=== PATIENT | female | born 1980 | race Caucasian/White ===

== ENCOUNTER → 2024-01-05 | Outpatient (CLI) | payer BC ==
[~2024-01-05] MED LIST: BACTRIM DS 8001 TAB PO; CELEXA 20MG20 MG/TAB PO; DIFLUCAN150 MG PO; DULERA1 ARO IH; KLONOPIN 0.5MG0.5 MG PO; LEVAQUIN 750MG750 M1 PO; NO HOME MEDICATIONS; NORCO 325 MG-51 TAB PO; PREDNISONE20 MG PO; PRENATAL1 TA2 PO; PROAIR HFA0.09 MG/AC IH; ZOVIRAX51
== END ==
LOC: MHCPAIN 08:40
DX: M54.16 Radiculopathy, lumbar region (principal)
CPT/HCPCS: 62323; Q9967

== ENCOUNTER → 2024-01-18 | Outpatient (CLI) | payer BC | LOC: MHCPAIN 12:50 | DX: M47.897 Other spondylosis, lumbosacral region (principal); M54.16 Radiculopathy, lumbar region | CPT/HCPCS: G0463 ==

== ENCOUNTER → 2024-01-19 | Outpatient (CLI) | payer BC ==
[~2024-01-19] MED LIST changes: +Iohexol 300 - 10 ML VIAL ONE; +Lidocaine PF 2% (20 MG/ML) 2 ML VIAL ONE
== END ==
LOC: MHCPAIN 09:35
DX: M54.17 Radiculopathy, lumbosacral region (principal)
CPT/HCPCS: J1100; Q9967